=== PATIENT | male | born 1955 | race Caucasian/White ===

== ENCOUNTER 2021-02-15 07:52 | Inpatient (IN) ==
[2021-02-15] MEDS ORDERED: D5% in Water 1,000 ML IVC PRN (09:59)
[2021-02-15] MEDS ORDERED: Naloxone 0.4 MG/ML INJ IVP PRN (09:59)
[2021-02-15] MEDS ORDERED: *HR* Dextrose 50 % in Water (Vial) 50 ML VIAL IVP PRN (09:59)
[2021-02-15] MEDS ORDERED: Acetaminophen 325 MG TABLET PO PRN (09:59)
[2021-02-15] MEDS ORDERED: Ondansetron 4 MG/2 ML VIAL IVP PRN ×2 (09:59→19:04)
[2021-02-15] MEDS ORDERED: Melatonin 3 MG TABLET PO PRN (09:59)
[2021-02-15] MEDS ORDERED: Dextrose Gel 15 GM/37.5 ML TUBE PO PRN ×2 (09:59)
[2021-02-15] MEDS: Insulin LISPRO 300 UNITS/3 ML VIAL SUBQ SCH ×3 (11:48→23:09)
[2021-02-15] MEDS ORDERED: Valsartan 80 MG TABLET PO SCH (12:15)
[2021-02-15] MEDS: 0.9 % Sodium Chloride 1,000 ML IVC SCH ×2 (12:23→22:25)
[2021-02-15] MEDS ORDERED: Nicotine 2 MG GUM BC PRN (12:36)
[2021-02-15] MEDS ORDERED: carvediloL 6.25 MG TABLET PO SCH (17:00)
[2021-02-15] MEDS: Piperacillin/Tazobactam 3.375 GM in 0.9 % Sodium Chloride Mini Bag 100 ML IVPB SCH ×2 (17:18→23:05)
[2021-02-15] MEDS ORDERED: Lidocaine HCL 4 ML Topical Solution (Laryng-O-Jet Kit Sterile Pak) TP ONE (19:00)
[2021-02-15] MEDS ORDERED: Lidocaine -MPF 2% 2 ML VIAL ONE (19:00)
[2021-02-15] MEDS ORDERED: *HR* FentaNYL (PF) 100 MCG/2 ML VIAL ONE ×2 (19:00→20:34)
[2021-02-15] MEDS ORDERED: *HR* Rocuronium Bromide 50 MG/5 ML VIAL ONE (19:00)
[2021-02-15] MEDS ORDERED: *HR* Succinylcholine 200 MG/10 ML VIAL IVP ONE (19:00)
[2021-02-15] MEDS ORDERED: *HR* Propofol 200 MG/20 ML VIAL IVP ONE (19:01)
[2021-02-15] MEDS ORDERED: *HR* Labetalol 20 MG/4 ML SYRINGE IVP PRN (19:04)
[2021-02-15] MEDS ORDERED: *HR* HYDROmorphone PF 0.5 MG/0.5 ML SYRINGE IVP PRN (19:04)
[2021-02-15] MEDS ORDERED: Famotidine 20 MG/2 ML VIAL ONE (19:11)
[2021-02-15] MEDS ORDERED: Ondansetron 4 MG/2 ML VIAL ONE (20:33)
[2021-02-15] MEDS ORDERED: 0.9 % Sodium Chloride 1,000 ML IVC ONE (23:31)
[2021-02-15 23:32] LABS: Basophils % 0.2 %; Red Cell Distribution Width 13.7 % (11.5-14.5)
[2021-02-15 23:33] LABS: Basophils # 0.1 K/mcL (0.0-0.2); Hematocrit 42.8 % (37.5-50.1); Hemoglobin 14.4 g/dL (12.9-16.9); Lymphocytes # 0.7 K/mcL (0.6-4.6); Lymphocytes % 2.6 %; Mean Corpuscular HGB Conc 33.6 g/dL (31.6-35.5); Mean Corpuscular Hemoglobin 29.9 pg (28.0-33.3); Mean Platelet Volume 9.7 fL (9.4-12.4); Monocytes # 2.3 K/mcL (0.0-1.3); Monocytes % 8.5 %; Neutrophils # 23.2 K/mcL (1.6-8.9); Platelet Count 226 K/mcL (140-400); Red Blood Count 4.81 M/mcL (4.19-5.50); Segmented Neutrophils % 87.7 %; White Blood Count 26.5 K/mcL (4.3-11.1)
[2021-02-16] MEDS ORDERED: 0.9 % Sodium Chloride 1,000 ML IVC ONE (00:05)
[2021-02-16] MEDS ORDERED: Melatonin 3 MG TABLET PO PRN (00:21)
[2021-02-16] MEDS ORDERED: D5% in Water 1,000 ML IVC PRN (00:21)
[2021-02-16] MEDS ORDERED: Acetaminophen 325 MG TABLET PO PRN (00:21)
[2021-02-16] MEDS ORDERED: Naloxone 0.4 MG/ML INJ IVP PRN (00:21)
[2021-02-16] MEDS ORDERED: 0.9 % Sodium Chloride 1,000 ML IVC SCH (00:21)
[2021-02-16] MEDS ORDERED: *HR* Labetalol 20 MG/4 ML SYRINGE IVP PRN (00:21)
[2021-02-16] MEDS ORDERED: *HR* Dextrose 50 % in Water (Vial) 50 ML VIAL IVP PRN (00:21)
[2021-02-16] MEDS ORDERED: Dextrose Gel 15 GM/37.5 ML TUBE PO PRN ×2 (00:21)
[2021-02-16] MEDS ORDERED: Nicotine 2 MG GUM BC PRN (00:21)
[2021-02-16] MEDS ORDERED: Ondansetron 4 MG/2 ML VIAL IVP PRN ×2 (00:21)
[2021-02-16] MEDS ORDERED: *HR* HYDROmorphone PF 0.5 MG/0.5 ML SYRINGE IVP PRN (00:21)
[2021-02-16] MEDS ORDERED: 0.9 % Sodium Chloride 500 ML IVC ONE (01:41)
[2021-02-16] MEDS ORDERED: Insulin LISPRO 300 UNITS/3 ML VIAL SUBQ SCH (06:00)
[2021-02-16 06:07] LABS: Hematocrit 35.9 % (37.5-50.1); Mean Corpuscular HGB Conc 33.1 g/dL (31.6-35.5); Mean Corpuscular Hemoglobin 30.2 pg (28.0-33.3); Mean Corpuscular Volume 91.1 fL (83.0-100.0); Mean Platelet Volume 10.3 fL (9.4-12.4); Platelet Count 182 K/mcL (140-400); Red Blood Count 3.94 M/mcL (4.19-5.50)
[2021-02-16 06:08] LABS: Hemoglobin 11.9 g/dL (12.9-16.9)
[2021-02-16 06:10] LABS: INR 1.6; Prothrombin Time 18.3 Seconds (9.4-12.1)
[2021-02-16 06:33] LABS: BUN/Creatinine Ratio 23 (6-26); Blood Urea Nitrogen 21 mg/dL (8-23); Calcium 7.6 mg/dL (8.6-10.3); Carbon Dioxide 21 mEq/L (23-29); Chloride 106 mEq/L (98-107); Glucose 253 mg/dL (70-105); Magnesium 1.7 mg/dL (1.6-2.6); Osmolality,Calculated 296 (280-300); Potassium 4.3 mEq/L (3.5-5.1); Sodium 137 mEq/L (136-145); eGFR For African Americans > 60 (> 60); eGFR For Non-African Americans > 60 (> 60)
[2021-02-16 07:13] LABS: Basophils % 0.1 %; Hematocrit 33.9 % (37.5-50.1); Immature Granulocytes % 0.7 % (0-4); Lymphocytes # 0.7 K/mcL (0.6-4.6); Lymphocytes % 3.1 %; Mean Corpuscular HGB Conc 32.4 g/dL (31.6-35.5); Mean Corpuscular Hemoglobin 29.3 pg (28.0-33.3); Mean Corpuscular Volume 90.2 fL (83.0-100.0); Mean Platelet Volume 10.1 fL (9.4-12.4); Monocytes # 1.6 K/mcL (0.0-1.3); Monocytes % 7.5 %; Platelet Count 184 K/mcL (140-400); Red Blood Count 3.76 M/mcL (4.19-5.50); Red Cell Distribution Width 13.8 % (11.5-14.5); Segmented Neutrophils % 88.6 %; White Blood Count 21.5 K/mcL (4.3-11.1)
[2021-02-16] MEDS: Piperacillin/Tazobactam 3.375 GM in 0.9 % Sodium Chloride Mini Bag 100 ML IVPB SCH ×2 (08:13→18:08)
[2021-02-16] MEDS: Aspirin Enteric Coated 81 MG Tablet PO SCH ×2 (08:14→09:08)
[2021-02-16] MEDS: Valsartan 80 MG TABLET PO SCH ×2 (08:14→09:07)
[2021-02-16] MEDS: carvediloL 6.25 MG TABLET PO SCH ×2 (08:15→08:48)
[2021-02-16] MEDS: Insulin LISPRO 300 UNITS/3 ML VIAL SUBQ SCH ×4 (09:00→22:14)
[2021-02-16] MEDS ORDERED: Aspirin Enteric Coated 81 MG Tablet PO SCH (09:00)
[2021-02-16 09:43] LABS: Hemoglobin 10.7 g/dL (12.9-16.9)
[2021-02-16] MEDS: Ipratropium/Albuterol Neb 3 ML IH SCH ×5 (10:53→23:15)
[2021-02-16 17:53] LABS: Hematocrit 28.8 % (37.5-50.1); Hemoglobin 9.5 g/dL (12.9-16.9)
[2021-02-17 02:30] LABS: Basophils % 0.1 %; Eosinophils % 0.1 %; Hematocrit 27.9 % (37.5-50.1); Hemoglobin 9.6 g/dL (12.9-16.9); Immature Granulocytes % 0.6 % (0-4); Lymphocytes # 0.7 K/mcL (0.6-4.6); Lymphocytes % 4.9 %; Mean Corpuscular HGB Conc 34.4 g/dL (31.6-35.5); Mean Corpuscular Hemoglobin 30.3 pg (28.0-33.3); Monocytes # 1.3 K/mcL (0.0-1.3); Monocytes % 8.7 %; Neutrophils # 12.6 K/mcL (1.6-8.9); Platelet Count 189 K/mcL (140-400); Red Blood Count 3.17 M/mcL (4.19-5.50); Red Cell Distribution Width 13.8 % (11.5-14.5); Segmented Neutrophils % 85.6 %; White Blood Count 14.8 K/mcL (4.3-11.1)
[2021-02-17 02:35] LABS: BUN/Creatinine Ratio 34 (6-26); Blood Urea Nitrogen 28 mg/dL (8-23); Calcium 7.7 mg/dL (8.6-10.3); Carbon Dioxide 24 mEq/L (23-29); Chloride 100 mEq/L (98-107); Glucose 182 mg/dL (70-105); Osmolality,Calculated 282 (280-300); Phosphorous 1.9 mg/dL (2.7-4.5); Potassium 3.9 mEq/L (3.5-5.1); Sodium 131 mEq/L (136-145); eGFR For African Americans > 60 (> 60); eGFR For Non-African Americans > 60 (> 60)
[2021-02-17 03:01] LABS: Folate 9.6 ng/mL (3.0-16.0)
[2021-02-17] MEDS: Piperacillin/Tazobactam 3.375 GM in 0.9 % Sodium Chloride Mini Bag 100 ML IVPB SCH ×4 (03:09→23:26)
[2021-02-17] MEDS: Ipratropium/Albuterol Neb 3 ML IH SCH ×6 (04:11→23:20)
[2021-02-17 05:15] LABS: % Iron Saturation 10 % (20-55); Ferritin 817 ng/mL (20-250); Iron 16 mcg/dL (65-175); Transferrin 114 mg/dL (203-362)
[2021-02-17] MEDS: NON-FORMULARY MEDICATION 1 EACH EACH (Ezetimibe [Zetia] 10 MG Tablet) PO SCH (07:51)
[2021-02-17] MEDS: Aspirin Enteric Coated 81 MG Tablet PO SCH (07:51)
[2021-02-17] MEDS: Insulin LISPRO 300 UNITS/3 ML VIAL SUBQ SCH ×4 (08:09→20:09)
[2021-02-17 08:13] LABS: Albumin/Globulin Ratio 1.1 (1.1-2.2); Bilirubin,Direct 0.8 mg/dL (0.0-0.2); Bilirubin,Indirect 0.6 mg/dL (0.0-1.0); Bilirubin,Total 1.4 mg/dL (0.3-1.0); Globulin 2.7 g/dL (2.4-3.5); Total Protein 5.7 g/dL (6.4-8.9)
[2021-02-18 01:14] LABS: Basophils % 0.2 %; Eosinophils # 0.1 K/mcL (0.0-0.6); Eosinophils % 0.6 %; Hematocrit 27.3 % (37.5-50.1); Immature Granulocytes % 0.6 % (0-4); Lymphocytes # 0.8 K/mcL (0.6-4.6); Lymphocytes % 8.5 %; Mean Corpuscular Hemoglobin 29.3 pg (28.0-33.3); Mean Corpuscular Volume 88.9 fL (83.0-100.0); Mean Platelet Volume 9.6 fL (9.4-12.4); Monocytes # 0.8 K/mcL (0.0-1.3); Monocytes % 8.3 %; Neutrophils # 7.8 K/mcL (1.6-8.9); Platelet Count 195 K/mcL (140-400); Red Blood Count 3.07 M/mcL (4.19-5.50); Red Cell Distribution Width 13.6 % (11.5-14.5); Segmented Neutrophils % 81.8 %
[2021-02-18 01:17] LABS: White Blood Count 9.5 K/mcL (4.3-11.1)
[2021-02-18 01:37] LABS: Alanine Aminotransferase 118 Units/L (7-52); Alkaline Phosphatase 110 Units/L (34-104); Aspartate Amino Transferase 22 Units/L (13-39); BUN/Creatinine Ratio 24 (6-26); Bilirubin,Total 1.1 mg/dL (0.3-1.0); Blood Urea Nitrogen 15 mg/dL (8-23); Carbon Dioxide 25 mEq/L (23-29); Chloride 101 mEq/L (98-107); Glucose 191 mg/dL (70-105); Magnesium 2.1 mg/dL (1.6-2.6); Osmolality,Calculated 284 (280-300); Potassium 3.9 mEq/L (3.5-5.1); Sodium 134 mEq/L (136-145); eGFR For African Americans > 60 (> 60); eGFR For Non-African Americans > 60 (> 60)
[2021-02-18] MEDS: Ipratropium/Albuterol Neb 3 ML IH SCH ×3 (03:36→11:16)
[2021-02-18] MEDS: NON-FORMULARY MEDICATION 1 EACH EACH (Ezetimibe [Zetia] 10 MG Tablet) PO SCH (08:15)
[2021-02-18] MEDS: Aspirin Enteric Coated 81 MG Tablet PO SCH (08:25)
[2021-02-18] MEDS: Piperacillin/Tazobactam 3.375 GM in 0.9 % Sodium Chloride Mini Bag 100 ML IVPB SCH (08:25)
[2021-02-18] MEDS: Insulin LISPRO 300 UNITS/3 ML VIAL SUBQ SCH ×2 (08:28→11:31)
[2021-02-18 11:17] VITALS: BP 128/74; PULSE 77; TEMP 98.4; O2SAT 94
== END 2021-02-18 13:42 | disposition home or self-care (01) | DRG 417 ==
LOC: 3BNU → SUATTDRO 09:07
PROVIDERS: ADMIT Internal Medicine; ATTEND Internal Medicine